=== PATIENT | male | born 1960 | race Caucasian/White ===

== ENCOUNTER 2019-03-04 11:49 | Emergency (ER) | payer MEDICAID ==
[~2019-03-04] VITALS: Ht 167.6 cm; Wt 75.9 kg
--- NOTE | 2019-03-04 11:59 | NUR ---
PT AMBULATED TO ER BED 10
[2019-03-04 12:01] VITALS: BP 120/73
--- NOTE | 2019-03-04 12:05 | NUR ---
BIB DAUGHTER. AAOX4. WOUND CHECK S/P SURGERY AT [facility] PT CANT NOT RECALL NAME OF SURGERY. PT HAS INDWELLING F/C 16 FR DRAINING WITH YELLOW URINE OUTPUT VIA GRAVITY. PT STATES 06/01. DENIES BURNING UPON URINATION. NO HEMATURIA NOTED. PT NOTED TO HAVE SX ON SCROTUM. PT'S SCROTUM HAS PACKING. NO DRAINAGE, NO SWELLING NOTED. HOB UP. BED SIDE RAILS UP X1. ON LOW BED POSITION, LOCKED. ER MADE AWARE OF PT STATUS.
--- NOTE | 2019-03-04 14:20 | NUR ---
APPLIED DRESSING TO LOWER TESTICLES WITHOUT ANY ISSUES
--- NOTE | 2019-03-04 14:20 | NUR ---
CLEANSE WOUND WITH NSS, PAD DRY, WOUND NO DISCHARGE NO SWOLLEN. COVER WITH DRY DRESSING. PT TOLERATED WELL
[2019-03-04 14:30] VITALS: BP 125/76
--- NOTE | 2019-03-04 14:30 | NUR ---
Patient discharged with v/s stable. Written and verbal after care instructions given and explained. Patient verbalized understanding. Ambulatory with steady gait. All questions addressed prior to discharge. Advised to follow up with PMD.
== END 2019-03-04 14:30 | disposition home or self-care (01) ==
LOC: MED 11:49
DX: Z48.01 Encounter for change or removal of surgical wound dressing (principal); E11.9 Type 2 diabetes mellitus without complications; Z98.890 Other specified postprocedural states
CPT/HCPCS: 82948; 99283

== ENCOUNTER 2023-03-23 22:09 | Emergency (ER) | payer MEDICAID, OTHER ==
[~2023-03-23] VITALS: Ht 157.5 cm; Wt 92.1 kg
[2023-03-23 22:58] VITALS: BP 130/62
[2023-03-24] MEDS ORDERED: ACET-10509 PO (00:46)
[2023-03-24] MEDS ORDERED: IBUP-2213 PO (00:46)
[2023-03-24 00:54] VITALS: BP 130/62
--- NOTE | 2023-03-24 00:54 | NUR ---
Patient seen and evaluated by [facility]
--- NOTE | 2023-03-24 00:55 | NUR ---
Patient discharged with v/s stable. Written and verbal after care instructions given and explained. New rx ibuprofen. Patient verbalized understanding. Ambulatory with steady gait. All questions addressed prior to discharge. Advised to follow up with PMD.
== END 2023-03-24 00:54 | disposition home or self-care (01) ==
LOC: MED 22:09
DX: S20.212A Contusion of left front wall of thorax, initial encounter (principal); J45.909 Unspecified asthma, uncomplicated; E11.9 Type 2 diabetes mellitus without complications; Z79.4 Long term (current) use of insulin; Z79.899 Other long term (current) drug therapy; W18.30XA Fall on same level, unspecified, initial encounter; Y93.89 Activity, other specified; Y92.89 Other specified places as the place of occurrence of the external cause; Y99.8 Other external cause status
CPT/HCPCS: 71101; 99283

== ENCOUNTER 2023-07-09 15:20 | Emergency (ER) | payer OTHER ==
[~2023-07-09] VITALS: Ht 157.5 cm; Wt 87.5 kg
[~2023-07-09 15:20] MED LIST: ACET-10509 PO; IBUP-2213 PO
[2023-07-09 15:36] VITALS: BP 106/57; PULSE 79; RESP 18; TEMP 98.3; O2SAT 95
[2023-07-09] MEDS: KETOROLAC 30 MG/ML VIAL IM ONE (16:19)
[2023-07-09] MEDS ORDERED: ACET-10509 PO (17:39)
[2023-07-09] MEDS ORDERED: IBUP-2213 PO (17:39)
[2023-07-09 17:56] VITALS: BP 133/70; PULSE 74; RESP 17; O2SAT 98
== END 2023-07-09 17:56 | disposition home or self-care (01) ==
LOC: MED 15:20
DX: M13.861 Other specified arthritis, right knee (principal); R60.0 Localized edema; J45.909 Unspecified asthma, uncomplicated; E11.9 Type 2 diabetes mellitus without complications; I10 Essential (primary) hypertension; Z79.899 Other long term (current) drug therapy
CPT/HCPCS: 73562; 93971; 96372; 99285; J1885; Q0092